=== PATIENT | female | born 1965 | race Caucasian/White ===

== ENCOUNTER 2020-09-04 13:16 | Emergency (ER) | payer OTHER ==
[~2020-09-04 13:16] MED LIST: CAMBIA50 MG PO; HCTZ12.5 MG PO; VIBRAMYCIN100 MG PO
[2020-09-04 15:24] LABS: BASOPHIL 0.9 % (0-2); EOSINOPHIL 1.3 % (0-5); HGB 12.2 g/dl (12.5-16.0); LYMPHOCYTE 31.5 % (15-48); MCH 28.3 pg (25.0-31.0); MCHC 32.1 g/dL (32.0-36.0); MCV 88.2 fL (78.0-100.0); MONOCYTE 10.2 % (0-12); MPV 11.3 fL (6.0-9.5); NEUTROPHIL 55.9 % (41-80); NRBC 0; PLT 285 K/uL (150-400); RBC 4.31 M/uL (4.20-5.40); RDW 13.1 % (11.5-14.0); WBC 5.3 K/uL (4.0-10.5)
[2020-09-04 15:35] LABS: ALBUMIN 3.9 g/dL (3.4-5.0); BILIRUBIN - TOTAL 0.4 mg/dL (0.2-1.0); CREATININE 0.95 mg/dL (0.51-0.95); GLOBULIN (CALCULATION) 3.3 g/dL; POTASSIUM 3.9 mmol/L (3.5-5.1); TOTAL PROTEIN 7.2 g/dL (6.4-8.2)
[2020-09-04 16:03] LABS: BILIRUBIN NEGATIVE (NEGATIVE); BLOOD TRACE-LYSED Ery/uL (NEGATIVE); CLARITY CLEAR (CLEAR); COLOR YELLOW (YELLOW); GLUCOSE (U) NORMAL (NORMAL); LEUKOCYTES NEGATIVE Leu/uL (NEGATIVE); NITRITE NEGATIVE (NEGATIVE); PROTEIN NEGATIVE (NEGATIVE); SPECIFIC GRAVITY 1.015 (1.001-1.030); UROBILINOGEN 0.2 mg/dL (0.2-1.0); pH 7.5 (5.0-9.0)
[2020-09-04 16:08] LABS: AMPHETAMINES NEGATIVE (NEGATIVE); BARBITURATES NEGATIVE (NEGATIVE); ECSTASY (MDMA) NEGATIVE (NEGATIVE); MARIJUANA (THC) NEGATIVE (NEGATIVE); METHADONE NEGATIVE (NEGATIVE); OPIATES NEGATIVE (NEGATIVE); OXYCODONE NEGATIVE (NEGATIVE)
[2020-09-04 16:12] LABS: BACTERIA TRACE; URINARY RBC RARE
== END 2020-09-04 18:40 | disposition home or self-care (01) ==
LOC: FER 13:16
PROVIDERS: Nurse Practitioner Family
DX: R51.9 Headache, unspecified (principal); R11.0 Nausea; R42 Dizziness and giddiness; I10 Essential (primary) hypertension; Z88.1 Allergy status to other antibiotic agents; Z88.4 Allergy status to anesthetic agent
CPT/HCPCS: 36415; 70450; 80053; 80305; 81001; 85025; 93005; J1100; J2405; J7030